=== PATIENT | male | born 1965 | race Caucasian/White ===

== ENCOUNTER 2017-01-01 18:38 | Emergency (ER) | payer OTHER ==
[2017-01-01 18:51] VITALS: BMI 36.3
--- NOTE | 2017-01-01 20:00 | DR.GENAD ---
HPI - PCP Primary Care Physician: Sam Stahl - Complaint/Symptoms Chief Complaint Doctors Comments: Patient complains of having problems breathing with tightness chest in the xiphoid area and across his chest with the pain worst when he tries to do anything for 1 1/2 month with the pain getting worst the past two days. States he has had a cold and cough but denies wheezing. States he went to his doctor with similar problems and he gave him Breo Inhaler for 14 days but he could not see where it helped and he did not give him a prescription for the inhaler. States he smokes one pack daily but denies alcohol or drug usage. He has not had an aspirin today. States the pain is worst when he tries to do something and last about 5-10 minutes after he stops whatever he was doing. He denies any recent trauma. Chief Complaint:: " I having problems breathing and hurting in chest not like a pain its just tight been having problems breathing for about a month seen my Dr but nothing seems to be helping weak feeling today and cant walk far without not being able to breath and get dizzy like I'm going to pass out." Self Treatment fo Chief Complaint: Zyrtec - Nurses notes reviewed Nurses Notes Review: Yes - Source History Provided: Patient - Mode of Arrival Mode of Arrival: Ambulatory - Timing Onset of Chief Complaint: 12/01/16 Came on: Gradually - Duration Duration: Intermittent How lon Duration: Weeks - Location Location: xiphoid tightness - Severity Severity: Moderate - Modifying Factors Worsens:: exertion Improves:: nothing PMH - PMH Past Medical History: Yes Past Medical History: Diabetes, Hypertension Past Surgical History: Yes Surgical History: Ortho Surgery Past Surgical History Comment: x3 Hernia repair - Family History History of Family Medical Conditions: No - Social History Does patient currently use any type of tobacco product: Yes Have you used tobacco products in the last 12 months: Yes Type of Tobacco Use: Cigarettes How many years tobacco product used: 30 Alcohol Use: None Do you use any recreational Drugs:: No Lives With: Mom Lives Where: Home - infectious screening Have you traveled outside the country in the last 6 months?: No ROS - Review of Systems Constitutional: No Symptoms Reported. negative: See HPI, Chills, Diaphoresis, Fever, Malaise, Weakness, Irritable, Fatigue, Loss of Appetite, Other Eyes: No Symptoms Reported ENTM: No Symptoms Reported. negative: See HPI, Ear Pain, Ear Discharge, Pulling on Ears, Hearing Loss, Nose Pain, Nose Discharge, Epistaxis, Nose Congestion, Mouth Pain, Mouth Swelling, Loose Teeth, Drooling, Throat Pain, Throat Swelling, Ear Foreign Body Respiratoy: Non-Productive Cough, Short of Breath, Wheezing. negative: No Symptoms Reported, See HPI, Productive Cough, Moist Cough, Dry Cough, Hacking Cough, Barking Cough, Brassy Cough, Orthopnea, Stridor, Hemoptysis, Other Cardiovascular: Chest Pain Gastrointestinal/Abdominal: No Symptoms Reported, Abdominal Pain (lower abdominal pain) Genitourinary: No Symptoms Reported Neurological: No Symptoms Reported Musculoskeletal: No Symptoms Reported Integumentary: No Symptoms Reported. negative: See HPI, Change in Color, Change in Hair/Nails, Dryness, Lesions, Lumps, Rash, Itching, Wound, Bruises, Juandice, Other Hematologic/Lymphatic: No Symptoms Reported Endocrine: No Symptoms Reported. negative: See HPI, Excessive Sweating, Flushing, Intolerance to Cold, Intolerance to Heat, Increased Hunger, Increased Thirst, Increased Urine, Unexplained Weight Gain, Unexplained Weight Loss, Failure to Thrive, Decreased Appetite, Other Psychiatric: No Symptoms Reported PE - Vital Signs Vitals: Temperature 97.6 F Pulse Rate 78 Respiratory Rate 18 Blood Pressure 131/97 O2 Sat by Pulse Oximetry 96 - General Limitations: No Limitations General Appearance: Alert, In Distress (moderate) - Head Head Exam: Normal Inspection, Atraumatic, Normocephalic - Eyes Eye exam: Normal Appearance, PERRL, EOMI. negative: Scleral Icterus, Conjunctival Injection, Nystagmus, Miosis, Mydrasis, Periorbital Swelling, Periorbital Tenderness, Other - ENT ENT Exam: Normal Exam, Normal Oropharynx, Normal External Ear Exam, Mucous Membranes Moist, TM's Normal Bilaterally External Ear Exam: Normal External Inspection TM/Canal Exam: Bilateral Normal Nose Exam: Normal Nose Exam Mouth Exam: Normal Inspection Throat Exam: Normal Inspection - Neck Neck Exam: Normal Inspection, Full ROM, Trachea Midline - Chest Chest Inspection: Normal Inspection, Symmetric Chest Wall Rise. negative: Tenderness, Rash, Abscess, Other - Respiratory Respiratory Exam: Normal Lung Sounds Bilat Respiratory Exam: Bilateral Clear to Auscultation, Bilateral Wheezing, Bilateral Decreased Breath Sounds - Cardiovascular Cardiovascular Exam: Regular Rate, Normal Rhythm, Normal Heart Sounds. negative : Bradycardia, Tachycardia, Irregular Rhythm, Systolic Murmur, Diastolic Murmur , Rubs, Gallop, Clicks, JVD, +S1, +S2, +S3, +S4, Other - Abdominal Exam Abdominal Exam: Normal Inspection, Normal Bowel Sounds, Soft Abdominal Tenderness: RLQ, Suprapubic, Moderate - Extremities Extremities Exam: Normal Inspection, Full ROM, Normal Capillary Refill. negative: Tenderness, Edema, Joint Swelling, Calf Tenderness, Other - Back Back Exam: Normal Inspection, Full ROM. negative: Tenderness, (R) CVA Tenderness, (L) CVA Tenderness, Muscle Spasm, Paraspinal Tenderness, Vertebral Tenderness, Rashes, (R) Sciatic Notch Tenderness, (L) Sciatic Notch Tendern, (R ) Straight Leg Raise, (L) Straight Leg Raise, Other - Neurologic Neurological Exam: Alert, Oriented X3, CN II-XII Intact, Normal Gait, Reflexes Normal - Psychiatric Psychiatric Exam: Normal Affect, Normal Mood - Skin Skin Exam: Warm, Dry, Intact, Normal Color Course - Reevaluation 1st: Improved - Consultation Called: 23:43 Call Returned: 23:43 (Dr. Gary Patel accepted patient at [facility]) - Education/Counseling Education/Counseling: Patient Educated On: Treatment, Diagnosis, Prognosis, Needs for Follow Up ROR - Labs Reviewed Laboratory Results Reviewed?: Yes (All labs and x-ray results reviewed and discussed with patient) Result Diagrams: 01/01/17 20:10 01/01/17 20:10 Laboratory: WBC 8.7 X10^3/uL (3.6-10.0) 01/01/17 20:10 RBC 5.27 X10^6/uL (4.7-6.0) 01/01/17 20:10 Hgb 15.3 g/dL (13.5-18.0) 01/01/17 20:10 Hct 45.1 % (42.0-54.0) 01/01/17 20:10 MCV 85.6 fL (80.0-100.0) 01/01/17 20:10 MCH 29.0 pg (27.0-34.0) 01/01/17 20:10 MCHC 33.9 g/dL (33.0-35.0) 01/01/17 20:10 RDW 14.1 % (11.6-16.5) 01/01/17 20:10 Plt Count 157 X10^3/uL (150.0-450.0) 01/01/17 20:10 MPV 8.0 fL (7.4-11.0) 01/01/17 20:10 Neut % 54.9 % (42.0-75.0) 01/01/17 20:10 Lymph % 33.9 % (21.0-51.0) 01/01/17 20:10 Rice % 8.0 % (0.0-13.0) 01/01/17 20:10 Eos % 2.0 % (0.9-2.9) 01/01/17 20:10 Baso % 1.2 % (0.2-1.0) H 01/01/17 20:10 Neut # 4.8 x10^3/uL (2.2-4.8) 01/01/17 20:10 Lymph # 3.0 X10^3/uL (1.3-2.9) H 01/01/17 20:10 Rice # 0.7 x10^3/uL (0.3-0.8) 01/01/17 20:10 Eos # 0.2 x10^3/uL (0.0-0.2) 01/01/17 20:10 Baso # 0.1 X10^3/uL (0.0-0.1) 01/01/17 20:10 Absolute Nucleated RBC 0.0 /100WBC 01/01/17 20:10 INR Target Range - 01/01/17 20:10 INR 1.08 (0.8-1.3) 01/01/17 20:10 PTT 26.9 SECONDS (22.9-36.5) 01/01/17 20:10 PTT Comment - 01/01/17 20:10 D-Dimer 2310 ng/mL (0-400) H* 01/01/17 20:10 Sodium 142 mmol/L (136-145) 01/01/17 20:10 Corrected Sodium TNP 01/01/17 20:10 Potassium 4.3 mmol/L (3.5-5.1) 01/01/17 20:10 Chloride 104 mmol/L (98-107) 01/01/17 20:10 Carbon Dioxide 26.7 mmol/L (21-32) 01/01/17 20:10 BUN 15 mg/dL (7-18) 01/01/17 20:10 Creatinine 1.15 mg/dL (0.70-1.30) 01/01/17 20:10 Est GFR (MDRD) Af Amer > 60 (>60) 01/01/17 20:10 Est GFR (MDRD) Non-Af > 60 (>60) 01/01/17 20:10 Glucose 96 mg/dL (65-99) 01/01/17 20:10 Calcium 8.4 mg/dL (8.5-10.1) L 01/01/17 20:10 Corrected Calcium TNP 01/01/17 20:10 Magnesium 1.8 mg/dL (1.7-2.9) 01/01/17 20:10 Total Bilirubin 0.30 mg/dL (0.2-1.0) 01/01/17 20:10 AST 24 Units/L (15-37) 01/01/17 20:10 ALT 37 Units/L (12-78) 01/01/17 20:10 Alkaline Phosphatase 115 Units/L (46-116) 01/01/17 20:10 Creatine Kinase 201 Units/L (39-308) 01/01/17 20:10 CK-MB (CK-2) 2.9 ng/mL (0-4.0) 01/01/17 20:10 CK/CKMB % Calc 1.4 % (<4) 01/01/17 20:10 Troponin I 0.05 ng/mL (0-1.5) 01/01/17 20:10 Total Protein 7.3 g/dL (6.4-8.2) 01/01/17 20:10 Albumin 3.5 g/dL (3.4-5.0) 01/01/17 20:10 Globulin 3.8 g/dL (2.5-4.5) 01/01/17 20:10 Albumin/Globulin Ratio 0.9 Ratio (1.1-2.1) L 01/01/17 20:10 Influenza A (H1N1) PCR Not detected (NOT DETECT) 01/01/17 22:06 Influenza Type A (PCR) Negative (NEGATIVE) 01/01/17 22:06 Influenza Type B (PCR) Negative (NEGATIVE) 01/01/17 22:06 - XRAY XRAY Interpreted by: Radiologist (CTA: Extensive large central saddle emboli are present bilaterally. Emboli extends into the brances of both main pulmonary arteries bilaterally.) - EKG Rate: 78 [place]: Normal Rhythm: NSR Block: RBBB ST: Nonsp - Diagnosis Discharge Problem: Bilateral pulmonary embolism, Chest pain Dyspnea Qualifiers: Dyspnea type: dyspnea on exertion Qualified Code(s): R06.09 - Other forms of dyspnea - Discharge Plan Disposition: Disch/Tx to Hospital Condition: Stable - Follow ups/Referrals Follow ups/Referrals: SAM STAHL [Primary Care Provider] - 3 days - Instructions
[2017-01-01] MEDS ORDERED: ASPIRIN PO ONE (20:04)
[2017-01-01] MEDS ORDERED: ASPIRIN ONE (20:16)
[2017-01-01 20:24] LABS: BASOPHILS # (AUTO) 0.1 X10^3/uL (0.0-0.1); BASOPHILS % (AUTO) 1.2 % (0.2-1.0); EOSINOPHILS # (AUTO) 0.2 x10^3/uL (0.0-0.2); HEMATOCRIT 45.1 % (42.0-54.0); HEMOGLOBIN 15.3 g/dL (13.5-18.0); LYMPHOCYTES % (AUTO) 33.9 % (21.0-51.0); MEAN CORPUSCULAR HGB CONC 33.9 g/dL (33.0-35.0); MEAN CORPUSCULAR VOLUME 85.6 fL (80.0-100.0); MONOCYTES # (AUTO) 0.7 x10^3/uL (0.3-0.8); NEUTROPHILS # (AUTO) 4.8 x10^3/uL (2.2-4.8); NEUTROPHILS % (AUTO) 54.9 % (42.0-75.0); PLATELET COUNT 157 X10^3/uL (150.0-450.0); RED BLOOD COUNT 5.27 X10^6/uL (4.7-6.0); RED CELL DISTRIBUTION WIDTH 14.1 % (11.6-16.5); WHITE BLOOD COUNT 8.7 X10^3/uL (3.6-10.0)
--- NOTE | 2017-01-01 20:44 | CT ---
EXAM: CT ABDOMEN AND PELVIS WITHOUT CONTRAST INDICATION: Right lower quadrant pain COMPARISION: No priors available for comparison TECHNIQUE: Axial CT examination of the abdomen and pelvis was performed without intravenous contrast. Coronal a nd sagittal reconstructions were created using the axial data. FINDINGS: The lung bases are clear. The liver, spleen, pancreas, adrenal glands, kidneys, and gallbladder are normal. There is no evidence of biliary ductal dilatation. The aorta and inferior vena cava are norm al in caliber. The bowel loops are nonobstructed. No abnormal mass, lymphadenopathy, or fluid collection. Urinary bladder is normal. The appendix is normal. Surgical clips are seen in the right lower quadr ant consistent with prior hernia repair. No residual hernia is identified. There is colonic divertic ulosis. The regional skeleton is intact. IMPRESSION: Normal CT examination of the abdomen and pelvis. Reported By:
--- NOTE | 2017-01-01 20:50 | RAD ---
HISTORY: Difficulty breathing Study: Portable AP chest Comparison: None Findings: The trachea is midline. The cardiac silhouette is unremarkable. The lungs are clear without focal infiltrate or effusion. The bony thorax is unremarkable. IMPRESSION: 1. No acute cardiopulmonary disease. Reported By:
[2017-01-01 20:56] LABS: D DIMER 2310 ng/mL (0-400)
[2017-01-01 20:57] LABS: ALANINE AMINOTRANSFERASE 37 Units/L (12-78); ALBUMIN 3.5 g/dL (3.4-5.0); ALKALINE PHOSPHATASE 115 Units/L (46-116); ASPARTATE AMINO TRANSFERASE 24 Units/L (15-37); BLOOD UREA NITROGEN 15 mg/dL (7-18); CALCIUM 8.4 mg/dL (8.5-10.1); CARBON DIOXIDE 26.7 mmol/L (21-32); CHLORIDE 104 mmol/L (98-107); CKMB % 1.4 % (<4); CREATINE KINASE 201 Units/L (39-308); CREATINE KINASE MB 2.9 ng/mL (0-4.0); CREATININE 1.15 mg/dL (0.70-1.30); GLUCOSE 96 mg/dL (65-99); MAGNESIUM 1.8 mg/dL (1.7-2.9); SODIUM 142 mmol/L (136-145); TOTAL PROTEIN 7.3 g/dL (6.4-8.2); TROPONIN I 0.05 ng/mL (0-1.5); eGFR BLACK RACES > 60 (>60); eGFR NON BLACK RACES > 60 (>60)
--- NOTE | 2017-01-01 22:15 | CT ---
EXAM: CTA CHEST WITH CONTRAST INDICATION: Shortness of breath COMPARISION: No priors for comparison TECHNIQUE: Spiral CT of the chest was performed with contrast. Thin reconstructions in the axial and para-coron al planes were obtained as well as 3D reconstructions. The patient received intravenous contrast wi thout adverse reaction. FINDINGS: There are large saddle emboli in the central divisions of the right and left main pulmonary arteries . Pulmonary emboli extend into the more peripheral branches throughout both pulmonary arterial syste ms. The heart size is normal. The aorta is normal in caliber. No evidence of dissection or aneurysm. No mediastinal or hilar mass or adenopathy. The lungs are clear. No evidence of bullous disease or pulmonary fibrosis. No lung mass, consolidati on, or suspicious pulmonary nodule. No pleural effusion or pneumothorax identified. The regional ske leton is intact. IMPRESSION: Extensive large central saddle emboli are present bilaterally. Emboli extend into the branches of marta th main pulmonary arteries bilaterally. Reported By:
[2017-01-01] MEDS ORDERED: HEPARIN SODIUM IN D5W 25,000 UNITS/500 ML BAG IV PRN (22:35)
[2017-01-01] MEDS ORDERED: HEPARIN SODIUM IN D5W 25,000 UNITS/500 ML BAG IV ONE (22:56)
[2017-01-01] MEDS ORDERED: HEPARIN SODIUM INJ 5000 UNITS IVP ONE (23:04)
[2017-01-01] MEDS ORDERED: HEPARIN SODIUM INJ 5000 UNITS ONE (23:04)
[2017-01-02 00:18] LABS: BILIRUBIN,URINE NEGATIVE (NEGATIVE); BLOOD/HEMOGLOBIN,URINE 2+ (NEGATIVE); GLUCOSE, URINE NEGATIVE (NEGATIVE); KETONES,URINE NEGATIVE (NEGATIVE); LEUKOCYTE ESTERASE ,URINE NEGATIVE (NEGATIVE); NITRITES,URINE NEGATIVE (NEGATIVE); PROTEIN,URINE 2+ (NEGATIVE); UROBILINOGEN,URINE NORMAL (NORMAL)
[2017-01-02 00:27] LABS: APPEARANCE,URINE SLIGHTLY HAZY (CLEAR); BACTERIA,URINE NEGATIVE /HPF (NEGATIVE); COLOR,URINE YELLOW (YELLOW); MUCUS,URINE FEW /HPF (NEGATIVE); SQUAMOUS EPITHELIAL CELL,UR RARE /HPF (NEGATIVE)
[2017-01-02 04:54] VITALS: BP 156/82
== END 2017-01-02 00:40 | disposition hospice, inpatient (51) ==
LOC: ER 18:38
PROC: 0T9B70Z Drainage of Bladder with Drainage Device, Via Natural or Artificial Opening (ICD-10-PCS; principal; 2017-01-01)
DX: I26.99 Other pulmonary embolism without acute cor pulmonale (principal); R07.89 Other chest pain; R06.09 Other forms of dyspnea; I10 Essential (primary) hypertension; R10.31 Right lower quadrant pain
CPT/HCPCS: 36415; 51702; 71010; 71275; 74176; 80053; 81001; 82550; 82553; 83735; 84484; 85025; 85378; 85610; 85730; 87502; 87503; 93005; 93010; 96365; 96374; 96375; 99284; 99285; A4222; J1644